=== PATIENT | female | born 1995 | race Caucasian/White ===

== ENCOUNTER 2024-03-05 18:05 | Emergency (ER) | payer MEDICAID ==
[~2024-03-05] VITALS: Ht 157.5 cm; Wt 56.0 kg
[2024-03-05 18:27] VITALS: O2SAT 99
[2024-03-05] MEDS ORDERED: ERYT1OIN6 EACHEYE (20:23)
[2024-03-05 20:54] VITALS: BP 101/68; PULSE 68; RESP 18; TEMP 98.6
== END 2024-03-05 20:57 | disposition home or self-care (01) ==
LOC: ER 18:05
DX: T15.92XA Foreign body on external eye, part unspecified, left eye, initial encounter (principal); X58.XXXA Exposure to other specified factors, initial encounter; Y93.89 Activity, other specified; Y92.89 Other specified places as the place of occurrence of the external cause; Y99.8 Other external cause status
CPT/HCPCS: 99283